=== PATIENT | male | born 1945 | race Caucasian/White ===

== ENCOUNTER 2017-09-21 10:51 | Day surgery (SDC) | payer MEDICARE, OTHER ==
[2017-09-21] VITALS (10 sets, daily range): BP systolic 90–147; BP diastolic 55–74
--- OUTSIDE RECORDS SUMMARY | 2017-09-21 10:55 | XMS REPORT ---
Author Author Kenzie Ayala [facility] Address [address] [place], [place] [id number] Care Team Providers Care Packaging Design Engineer Name Role Phone Kenzie Ayala PCP Kenzie Ayala PreferredProvider Allergies and Adverse Reactions Name Reaction Notes Nubain makes me nutty Plan of Treatment Planned Activity Comments Planned Date Planned Time Plan/Goal Adenovirus DNA assay by PCR 04/28/2016 12:00 AM Complete blood count (CBC) with differential count 05/27/2016 12:00 AM Comprehensive metabolic panel 05/27/2016 12:00 AM Lipid Blood Profile 05/27/2016 12:00 AM Hemoglobin A1c measurement 05/27/2016 12:00 AM MICROALBUMIN UR RANDOM 05/27/2016 12:00 AM Medications Active Name Start Date Estimated Completion Date SIG Comments tizanidine 4 mg oral capsule take 1 capsule (4 mg) by oral route at bedtime PRN Fish Oil oral nitroglycerin 0.4 mg sublingual tablet, sublingual pyridoxine (vitamin B6) 100 mg oral tablet take 1 tablet by oral route daily Centrum Silver 0.4-300-250 mg-mcg-mcg oral tablet take 1 tablet by oral route daily aspirin 81 mg oral tablet,delayed release (DR/EC) take 1 tablet (81 mg) by oral route once daily alpha lipoic acid 200 mg oral capsule take 1 capsule by oral route daily Acetaminophen PM 25-500 mg oral tablet take 2 tablets by oral route once daily at bedtime carvedilol 25 mg oral tablet 02/26/2016 08/19/2017 take 1 tablet (25 mg) by oral route 2 times per for 90 days enalapril maleate 20 mg oral tablet 03/29/2016 09/20/2017 take 1 tablet (20 mg) by oral route 2 for 90 days gabapentin 300 mg oral capsule 03/29/2016 03/24/2017 take 1 capsule (300 mg ) by oral route 3 for 90 days metformin 1,000 mg oral tablet 03/29/2016 09/20/2017 take 1.5 tabs in the morning and 1 tablet in the evening for 90 days pioglitazone 45 mg oral tablet 03/29/2016 12/24/2016 take 1 tablet (45 mg) by oral route once daily for 90 days tamsulosin 0.4 mg oral capsule,extended release 24hr 03/29/2016 09/20/2017 take 1 capsule (0.4 mg) by oral route once daily 1/2 hour following the same for 90 days pravastatin 40 mg oral tablet 04/19/2016 10/11/2017 take 1 tablet by oral route once a day (at bedtime) for 90 days KCL 20 meq 04/26/2016 1 po daily x5 clopidogrel 75 mg oral tablet 04/28/2016 10/20/2017 take 1 tablet (75 mg) by oral route once daily for 90 days ProAir HFA 90 mcg/actuation inhalation HFA aerosol inhaler 04/28/20162016 inhale 1 puff (90 mcg) by inhalation route every 4 hours as needed for 30 days PROAIR HFA AER 05/26/2016 INHALE ONE PUFF BY MOUTH EVERY 4 HOURS NEEDED fentanyl 75 mcg/hr transdermal patch 72 hour 05/27/2016 06/26/2016 Change every 36 hrs for 30 days hydrocodone-acetaminophen 7.5-325 mg oral tablet 05/27/2016 06/26/2016 take 1 tablet by oral route every 6 hours as needed for pain for 30 days Name Start Date Expiration Date SIG Comments Lasix 40 mg oral tablet 04/26/2016 05/01/2016 take 1 tablet (40 mg) by oral route once daily for 5 days doxycycline hyclate 100 mg oral tablet,delayed release (DR/EC) 04/28/201605/05 take 1 tablet (100 mg) by oral route 2 times per day for 7 days Discontinued Name Start Date Discontinued Date SIG Comments Lyrica 75 mg oral capsule 02/26/2016 take 1 capsule (75 mg) by oral route 2 times per day Levaquin 500 mg oral tablet 04/22/2016 04/28/2016 take 1 tablet (500 mg) by oral route once daily for 7 days Problem List Not available. Vital Signs Date Time BP-Sys(mm[Hg] BP-Katie(mm[Hg]) HR(bpm) RR(rpm) Temp WT HT HC BMI BSA BMI Percentile O2 Sat(%) 05/27/2016 1:41:00 PM 140 mmHg 60 mmHg 70 bpm 18 rpm 99.5 F 235.125 lbs 68 in 35.75 kg/m2 2.26 m2 93 % 04/28/2016 1:34:00 PM 144 mmHg 78 mmHg 74 bpm 18 rpm 99.6 F 227.5 lbs 68 in 34.5909 kg/m 2.2251 m 91 % 04/26/2016 10:54:00 AM 132 mmHg 72 mmHg 78 bpm 18 rpm 97 F 230.8 lbs 68 in 35.09 kg/m2 2.24 m2 98 % 04/22/2016 1:15:00 PM 140 mmHg 74 mmHg 74 bpm 18 rpm 98.7 F 231.125 lbs 68 in 35.1421 kg/m 2.2427 m 90 % 03/29/2016 2:15:00 PM 140 mmHg 76 mmHg 74 bpm 16 rpm 99 F 237.125 lbs 68 in 36.05 kg/m2 2.27 m2 94 % 02/26/2016 3:37:00 PM 164 mmHg 80 mmHg 70 bpm 16 rpm 100.2 F 233.125 lbs 69 in 34.4262 kg/m 2.2689 m 94 % Social History Name Description Comments Tobacco Former smoker quit 2000 Caffeine Current every day History of Procedures Date Ordered Description Order Status 04/22/2016 12:00 AM METABOLIC PANEL TOTAL CA Returned 04/22/2016 12:00 AM COMPLETE CBC W/AUTO DIFF WBC Returned 04/22/2016 12:00 AM CHEST X-RAY 2VW FRONTAL&LATL Returned 04/22/2016 12:00 AM ASSAY OF NATRIURETIC PEPTIDE Returned 04/28/2016 12:00 AM METABOLIC PANEL TOTAL CA Returned 04/28/2016 12:00 AM COMPLETE CBC W/AUTO DIFF WBC Returned 04/28/2016 12:00 AM CHEST X-RAY 2VW FRONTAL&LATL Returned 04/28/2016 12:00 AM ASSAY OF NATRIURETIC PEPTIDE Returned 04/28/2016 12:00 AM C-REACTIVE PROTEIN Returned 04/28/2016 12:00 AM AGENT NOS ASSAY W/OPTIC Returned 04/28/2016 12:00 AM LEGIONELLA ANTIBODY Returned Results Summary Data and Description Results 04/22/2016 1:38 PM WBC 12.5 RBC 5.58 HGB 14.10 g/dLHCT 43.50 %MCV 78.0 fLMCH 25.30 pgMCHC 32.40 g/dLRDW SD 41 RDW CV 14.60 %MPV 10.30 fLPLT 285 NRBC# 0.00 NRBC% 0.0 %NEUT 70.80 %%LYMP 19.50 %%MONO 6.80 %%EOS 1.80 %%BASO 0.60 %#NEUT 8.87 #LYMP 2.44 #MONO 0.85 #EOS 0.22 #BASO 0.08 MANUAL DIFF NOT IND GLUCOSE 141.0 mg/dLSODIUM 141.0 mmol/LPOTASSIUM 3.90 mmol/LCHLORIDE 99.0 mmol/LCO2 30.0 mmol/LBUN 8.0 mg/dLCREATININE 0.70 mg/dLCALCIUM 10.10 mg/dLAGE 70 GFR NonAA 111 GFR AA 135 eGFR >60 mL/min/1.73meGFR AA* >60 BNP 168.0 pg/mL 04/28/2016 2:40 PM WBC 14.8 RBC 5.64 HGB 14.40 g/dLHCT 44.50 %MCV 79.0 fLMCH 25.50 pgMCHC 32.40 g/dLRDW SD 42 RDW CV 15.0 %MPV 10.70 fLPLT 335 NRBC# 0.00 NRBC% 0.0 %NEUT 64.20 %%LYMP 25.70 %%MONO 5.90 %%EOS 2.70 %%BASO 0.60 %#NEUT 9.47 #LYMP 3.80 #MONO 0.87 #EOS 0.40 #BASO 0.09 MANUAL DIFF NOT IND C REACTIVE PROTEIN 18.0 mg/LBNP 37.0 pg/mLGLUCOSE 128.0 mg/dLSODIUM 138.0 mmol/LPOTASSIUM 4.40 mmol/LCHLORIDE 94.0 mmol/LCO2 31.0 mmol/LBUN 18.0 mg/dLCREATININE 0.80 mg/ dLCALCIUM 10.40 mg/dLAGE 70 GFR NonAA 95 GFR AA 115 eGFR >60 mL/min/1.73meGFR AA* >60 Streptococcus pneumoniaeAg Negative Legionella pneumophilaAbs. <0.91 04/28/2016 3:41 PM Adenovirus Not Detected Coronavirus 229E Not Detected Coronavirus HKU1 Not Detected Coronavirus NL63 Not Detected Coronavirus OC43 Not Detected Human Metapneumoviru Not Detected Human Rhinov/Enterov Not Detected Influenza A Not Detected Influenza B Not Detected Parainfluenza Virus1 Not Detected Parainfluenza Virus2 Not Detected Parainfluenza Virus3 Not Detected Parainfluenza Virus4 Not Detected Resp Syncytial Virus Not Detected Bordetella pertussis Not Detected Chlamydophila pneumo Not Detected Mycoplasma pneumonia Not Detected History Of Immunizations Not available. History of Past Illness Name Date of Onset Comments CAD Mar 29 2016 2:19PM Diabetes Mellitus, Type II Mar 29 2016 2:19PM Heart Failure, Systolic Mar 29 2016 2:19PM Lymphedema Mar 29 2016 2:19PM Obesity Mar 29 2016 2:19PM Osteoarthritis Mar 29 2016 2:19PM Lumbago with sciatica, right side Mar 29 2016 2:19PM Lumbago with sciatica, left side Mar 29 2016 2:19PM Other chronic pain Mar 29 2016 2:19PM Shortness Of Breath Apr 22 2016 1:17PM Cough Apr 22 2016 1:17PM Pneumonia of both lower lobes due to infectious organism Apr 26 2016 10:57AM Atelectasis, bilateral Apr 26 2016 10:57AM Heart Failure, Diastolic Apr 28 2016 1:37PM CAD Feb 26 2016 3:40PM Hyperlipidemia, Mixed Feb 26 2016 3:40PM Hypertension Feb 26 2016 3:40PM Single kidney Feb 26 2016 3:40PM Traumatic arthritis Feb 26 2016 3:40PM Radicular pain of left lower extremity Feb 26 2016 3:40PM FUO (fever of unknown origin) Feb 26 2016 3:40PM Cough Apr 28 2016 1:37PM Diabetes Mellitus, Type II, Uncontrolled May 27 2016 1:44PM Heart Failure, Diastolic May 27 2016 1:44PM Hypertension May 27 2016 1:44PM Osteoarthritis May 27 2016 1:44PM Chronic pain syndrome May 27 2016 1:44PM Payers Insurance Name Company Name Plan Name Plan Number Policy Number Policy Group Number Start Date [employer] [facility] [facility] [id number] N/A Medicare Part A Medicare - Lab/Xray [id number] N/A Medicare RHC Medicare [facility] [id number] N/A History of Encounters Visit Date Visit Type Provider 05/27/2016 Office visit Kenzie Ayala MD 04/28/2016 Office visit Kenzie Ayala MD 04/26/2016 Office visit Yvette Hansen APRN 04/22/2016 Office visit Yvette Hansen APRN 03/29/2016 Office visit Kenzie Ayala MD 02/26/2016 Office visit Kenzie Ayala MD
--- OUTSIDE RECORDS SUMMARY | 2017-09-21 10:55 | XMS REPORT ---
Author Author Kenzie Ayala [facility] Address [address] [place], [place] [id number] Care Team Providers Care Maintenance Of Way Foreman Name Role Phone Kenzie Ayala PCP Kenzie Ayala PreferredProvider Allergies and Adverse Reactions Name Reaction Notes Nubain makes me nutty Plan of Treatment Planned Activity Comments Planned Date Planned Time Plan/Goal Complete blood count (CBC) with differential count 05/27/2016 12:00 AM Comprehensive metabolic panel 05/27/2016 12:00 AM Lipid Blood Profile 05/27/2016 12:00 AM Hemoglobin A1c measurement 05/27/2016 12:00 AM MICROALBUMIN UR RANDOM 05/27/2016 12:00 AM Adenovirus DNA assay by PCR 04/28/2016 12:00 AM Basic metabolic panel 08/17/2016 12:00 AM BNP 08/17/2016 12:00 AM Medications Active Name Start Date Estimated Completion Date SIG Comments tizanidine 4 mg oral capsule take 1 capsule (4 mg) by oral route at bedtime PRN Fish Oil oral pyridoxine (vitamin B6) 100 mg oral tablet [...] by oral route once daily at bedtime enalapril maleate 20 mg oral tablet 03/29/2016 09/20/2017 take 1 tablet (20 mg) by oral route 2 for 90 days gabapentin 300 mg oral capsule 03/29/2016 03/24/2017 take 1 capsule (300 mg ) by oral route 3 for 90 days metformin 1,000 mg oral tablet 03/29/2016 09/20/2017 take 1.5 tabs in the morning and 1 tablet in the evening for 90 days tamsulosin 0.4 mg oral [...] oral route once daily for 90 days PROAIR HFA AER 05/26/2016 INHALE ONE PUFF BY MOUTH EVERY 4 HOURS NEEDED nitroglycerin 0.4 mg sublingual tablet, sublingual 09/21/2016 place 1 tablet (0.4 mg) by buccal route at the first sign of an attack; no more than 3 tabs are recommended within a 15 minute period. Pataday 0.2 % ophthalmic (eye) drops 01/19/2017 instill 1 drop into affected eye(s) by ophthalmic route once daily for 30 days fentanyl 75 mcg/hr transdermal patch 72 hour 02/23/2017 03/25/2017 Change every 36 hrs for 30 days. hydrocodone-acetaminophen 7.5-325 mg oral tablet 02/23/2017 03/25/2017 take 1 tablet by oral route every 6 hours as needed for pain for 30 days. Name Start Date Expiration Date SIG Comments pioglitazone 45 mg oral tablet 03/29/2016 12/24/2016 take 1 tablet (45 mg) by oral route once daily for 90 days doxycycline hyclate 100 mg oral tablet,delayed release (DR/EC) 04/28/201605/05 take 1 tablet (100 mg) by oral route 2 times per day for 7 days Ventolin HFA 90 mcg/actuation inhalation HFA aerosol inhaler 05/27/20162016 inhale 1 puff (90 mcg) by inhalation route every 4 hours as needed for 30 days Lasix 20 mg oral tablet 08/17/2016 02/13/2017 take 1 tablet (20 mg) by oral route once daily for 30 days carvedilol 25 mg oral tablet 02/28/2017 02/28/2017 TAKE ONE TABLET BY MOUTH TWICE DAILY Discontinued Name Start Date Discontinued Date SIG [...] HC BMI BSA BMI Percentile O2 Sat(%) 01/19/2017 4:24:00 PM 128 mmHg 62 mmHg 72 bpm 18 rpm 99.7 F 242 lbs 68 in 36.80 kg/m2 2.29 m2 93 % 08/17/2016 1:53:00 PM 172 mmHg 94 mmHg 72 bpm 18 rpm 99.4 F 250.125 lbs 68 in 38.031 kg/m 2.3331 m 92 % 05/27/2016 1:41:00 PM 140 mmHg 60 mmHg [...] 04/22/2016 12:00 AM METABOLIC PANEL TOTAL CA Reviewed 04/22/2016 12:00 AM COMPLETE CBC W/AUTO DIFF WBC Reviewed 04/22/2016 12:00 AM CHEST X-RAY 2VW FRONTAL&LATL Reviewed 04/22/2016 12:00 AM ASSAY OF NATRIURETIC PEPTIDE Reviewed 04/28/2016 12:00 AM METABOLIC PANEL TOTAL CA Returned 04/28/2016 12:00 AM COMPLETE CBC W/AUTO DIFF WBC Returned 04/28/2016 12:00 AM CHEST X-RAY 2VW FRONTAL&LATL Returned 04/28/2016 12:00 AM ASSAY OF NATRIURETIC PEPTIDE Returned 04/28/2016 12:00 AM C-REACTIVE PROTEIN Returned 04/28/2016 12:00 AM AGENT NOS ASSAY W/OPTIC Returned 04/28/2016 12:00 AM LEGIONELLA ANTIBODY Returned 01/19/2017 12:00 AM THERAPEUTIC PROPHYLACTIC/DX INJECTION SUBQ/IM Reviewed 01/19/2017 12:00 AM Depo Medrol 40mg Injection, [facility] Medicare Reviewed 01/19/2017 12:00 AM Decadron 4mg Injection, [facility] Medicare Reviewed 01/19/2017 12:00 AM Injection, dexamethasone sodium phosphate, 1mg Reviewed 01/19/2017 12:00 AM Injection, methylprednisolone acetate, 80 mg Reviewed Results Summary Date and Description Results 04/22/2016 1:38 PM WBC [...] >60 mL/min/1.73meGFR AA* >60 BNP 168.0 pg/mL History Of Immunizations Not available. History of [...] Chronic pain syndrome May 27 2016 1:44PM Cough Aug 17 2016 1:57PM Fatigue Aug 17 2016 1:57PM Weight Gain, Abnormal Aug 17 2016 1:57PM Sinusitis Jan 19 2017 4:53PM Allergic Rhinitis Jan 19 2017 4:28PM Allergic conjunctivitis Jan 19 2017 4:28PM Lumbago with sciatica, left side Jan 19 2017 4:28PM Lumbago with sciatica, right side Jan 19 2017 4:28PM Other chronic pain Jan 19 2017 4:28PM Payers Insurance Name Company Name Plan Name Plan Number Policy Number Policy Group Number Start Date [facility] [employer] [facility] [id number] Wednesday, 2016 Medicare Part A Medicare - Lab/Xray [id number] N/A Medicare RHC Medicare C [id number] N/A History of Encounters Visit Date Visit Type Provider 01/19/2017 Office visit Kenzie Ayala MD 08/17/2016 Office visit Kenzie Ayala MD 05/27/2016 Office visit Kenzie Ayala MD 04/28/2016 Office visit Kenzie Ayala MD 04/26/2016 Office visit Yvette Hansen APRN 04/22/2016 Office visit Yvette Hansen APRN 03/29/2016 Office visit Kenzie Ayala MD 02/26/2016 Office visit Kenzie Ayala MD
--- OUTSIDE RECORDS SUMMARY | 2017-09-21 10:56 | XMS REPORT ---
Author Author Fabian Lehman [facility] Address [address] [place], [place] [id number] Care Team Providers Care Soda Worker Name Role Phone Fabian Lehman PCP Kenzie Ayala PreferredProvider Allergies and Adverse [...] 08/17/2016 12:00 AM BNP 08/17/2016 12:00 AM Respiratory Therapy Treatment 05/22/2017 12:00 AM Administration of ipratropium bromide with albuterol sulfate by nebulizer 12:00 AM Breathing Treatment 05/22/2017 12:00 AM Medications Active Name Start Date Estimated Completion Date SIG Comments Fish Oil oral Centrum Silver 0.4-300-250 mg-mcg-mcg oral tablet take 1 tablet by oral route daily aspirin 81 mg oral tablet,delayed release (DR/EC) take 1 tablet (81 mg) by oral route once daily alpha lipoic acid 200 mg oral capsule take 1 capsule by oral route daily Acetaminophen PM 25-500 mg oral tablet take 2 tablets by oral route once daily at bedtime KCL 20 meq 04/26/2016 1 po daily x5 nitroglycerin 0.4 mg sublingual tablet, sublingual 09/21/2016 place 1 tablet (0.4 mg) by buccal route at the first sign of an attack; no more than 3 tabs are recommended within a 15 minute period. Pataday 0.2 % ophthalmic (eye) drops 01/19/2017 instill 1 drop into affected eye(s) by ophthalmic route once daily for 30 days albuterol sulfate 2.5 mg /3 mL (0.083 %) inhalation solution for nebulization 05/22/2017 inhale 3 milliliters (2.5 mg) by nebulization route 4 times per day as needed gabapentin 300 mg oral capsule 06/17/2017 TAKE ONE CAPSULE BY MOUTH DAILY isosorbide mononitrate 30 mg oral tablet extended release 24 hr take 1 tablet (30 mg) by oral route once daily in the morning Tessalon Perles 100 mg oral capsule 06/17/2017 take 1 capsule (100 mg) by oral route 3 times per day as needed for cough ipratropium-albuterol 0.5 mg-3 mg(2.5 mg base)/3 mL inhalation solution for nebulization 06/18/2017 use in nebulizer as directed 2 times a day nebulizer with acc 06/18/2017 Use as directed. oxycodone-acetaminophen 7.5-325 mg oral tablet 08/23/2017 09/22/2017 take 1 tablet by oral route every 6 hours as needed not to exceed 8 tablets per 24hrs for 30 days fentanyl 75 mcg/hr transdermal patch 72 hour 08/23/2017 09/22/2017 apply 1 patch (75 mcg/hour) by transdermal route every 36 hours for 30 days Name Start Date Expiration Date SIG Comments tizanidine 4 mg oral capsule take 1 capsule (4 mg) by oral route at bedtime PRN pyridoxine (vitamin B6) 100 mg oral tablet take 1 tablet by oral route daily tamsulosin 0.4 mg oral capsule,extended release 24hr 03/29/2016 09/20/2017 take 1 capsule (0.4 mg) by oral route once daily 1/2 hour following the same for 90 days doxycycline hyclate 100 mg [...] TAKE ONE TABLET BY MOUTH TWICE DAILY enalapril maleate 20 mg oral tablet 04/20/2017 04/20/2017 TAKE ONE TABLET BY MOUTH TWICE DAILY pioglitazone 45 mg oral tablet 05/16/2017 05/16/2017 TAKE ONE TABLET BY MOUTH ONCE DAILY clopidogrel 75 mg oral tablet 05/16/2017 05/16/2017 TAKE ONE TABLET BY MOUTH ONCE DAILY pravastatin 40 mg oral tablet 05/16/2017 05/16/2017 TAKE ONE TABLET BY MOUTH ONCE DAILY AT BEDTIME FOR 90 DAYS Tamiflu 75 mg oral capsule 05/22/2017 take 1 capsule (75 mg) by oral route 2 times per day for 5 days Tessalon Perles 100 mg oral capsule 05/22/2017 take 1 capsule (100 mg) by oral route 3 times per day as needed for cough metformin 1,000 mg oral tablet 05/30/2017 05/30/2017 TAKE ONE & ONE-HALF TABLETS BY MOUTH IN THE MORNING AND ONE TABLET IN THE EVENING FOR 90 DAYS. levofloxacin 500 mg oral tablet 06/17/2017 take 1 tablet (500 mg) by oral route once daily for 10 days hydrocodone-acetaminophen 7.5-325 mg oral tablet 06/22/2017 07/22/2017 take 1 tablet by oral route every 6 hours as needed for pain for 30 days. Discontinued Name Start Date Discontinued Date SIG Comments Lyrica 75 mg oral capsule 02/26/2016 take 1 capsule (75 mg) by oral route 2 times per day Levaquin 500 mg oral tablet 04/22/2016 04/28/2016 take 1 tablet (500 mg) by oral route once daily for 7 days PROAIR HFA AER 05/26/2016 05/22/2017 INHALE ONE PUFF BY MOUTH EVERY 4 HOURS NEEDED Problem List Not available. Vital Signs Date Time BP-Sys(mm[Hg] BP-Katie(mm[Hg]) HR(bpm) RR(rpm) Temp WT HT HC BMI BSA BMI Percentile O2 Sat(%) 08/23/2017 10:24:00 AM 140 mmHg 64 mmHg 70 bpm 18 rpm 98.1 F 252.25 lbs 67 in 39.5075 kg/m 2.3257 m 92 % 06/22/2017 3:53:00 PM 132 mmHg 70 mmHg 70 bpm 18 rpm 97.5 F 239.25 lbs 67 in 37.47 kg/m2 2.26 m2 92 % 06/17/2017 1:02:00 PM 154 mmHg 84 mmHg 72 bpm 22 rpm 100.1 F 247 lbs 67 in 38.6853 kg/m 2.3014 m 91 % 05/22/2017 1:45:00 PM 130 mmHg 70 mmHg 101.3 F 242.125 lbs 91 % 01/19/2017 4:24:00 PM 128 mmHg 62 mmHg [...] 01/19/2017 12:00 AM Depo Medrol 40mg Injection, [facility] Medicare Reviewed 01/19/2017 12:00 AM Decadron 4mg Injection, [facility] Medicare Reviewed 01/19/2017 12:00 AM Injection, dexamethasone sodium phosphate, 1mg Reviewed 01/19/2017 12:00 AM Injection, methylprednisolone acetate, 80 mg Reviewed 06/17/2017 12:00 AM CHEST X-RAY 2VW FRONTAL&LATL Reviewed 06/17/2017 12:00 AM COMPLETE CBC W/AUTO DIFF WBC Reviewed 06/17/2017 12:00 AM COMPREHEN METABOLIC PANEL Reviewed 06/17/2017 12:00 AM ASSAY OF NATRIURETIC PEPTIDE Reviewed 06/17/2017 12:00 AM GLYCOSYLATED HEMOGLOBIN TEST Reviewed 06/17/2017 12:00 AM Decadron 8mg Injection, [facility] Medicare Reviewed 06/17/2017 12:00 AM Depo-Medrol 80mg Injection, [facility] Medicare Reviewed 06/17/2017 12:00 AM Rocephin 1 gram Injection, [facility] Medicare Reviewed 06/17/2017 12:00 AM THER/PROPH/DIAG INJ SC/IM Reviewed Results Summary Date and Description Results [...] >60 mL/min/1.73meGFR AA* >60 BNP 168.0 pg/mL 06/17/2017 4:20 PM GLUCOSE 122.0 mg/dLSODIUM 140.0 mmol/LPOTASSIUM 4.0 mmol/ LCHLORIDE 101.0 mmol/LCO2 30.0 mmol/LBUN 12.0 mg/dLCREATININE 0.70 mg/dLSGOT/ AST 14.0 IU/LSGPT/ALT 11.0 IU/LALK PHOS 49.0 IU/LTOTAL PROTEIN 7.70 g/dLALBUMIN 3.80 g/dLTOTAL BILI 1.0 mg/dLCALCIUM 9.50 mg/dLAGE 71 GFR NonAA 111 GFR AA 135 eGFR >60 mL/min/1.73meGFR AA* >60 WBC 14.8 RBC 4.83 HGB 12.40 g/dLHCT 40.0 % MCV 83.0 fLMCH 25.70 pgMCHC 31.0 g/dLRDW SD 48 RDW CV 15.90 %MPV 11.20 fLPLT 267 NRBC# 0.00 NRBC% 0.0 %NEUT 75.40 %%LYMP 16.80 %%MONO 4.0 %%EOS 2.40 %%BASO 0.70 %#NEUT 11.13 #LYMP 2.48 #MONO 0.59 #EOS 0.35 #BASO 0.11 MANUAL DIFF NOT IND HGB A1C 6.80 %Est Avg Glucose 148.5 mg/dLBNP 289.0 pg/mL History Of Immunizations Not available. History of Past Illness Name Date of Onset Comments Cough Shortness of Breath Hypoxemia Influenza Allergic rhinitis Chronic back pain Fatigue Chronic heart failure, unspecified heart failure type Diabetes Pneumonia CAD Lymphedema Osteoarthritis Peripheral neuropathy Hyperlipidemia CAD Mar 29 2016 2:19PM Diabetes Mellitus, [...] Other chronic pain Jan 19 2017 4:28PM Shortness of breath May 22 2017 2:02PM Influenza May 22 2017 1:50PM Cough May 22 2017 1:50PM Hypoxemia May 22 2017 1:50PM Shortness of breath May 22 2017 1:50PM Fever May 22 2017 1:50PM Cough Jun 17 2017 1:24PM Fever Jun 17 2017 1:24PM Adventitious breath sounds Jun 17 2017 1:24PM Diabetes mellitus, type 2 Jun 17 2017 1:24PM Hyperlipidemia Jun 17 2017 1:24PM CHF (congestive heart failure) Jun 17 2017 1:24PM CAD (coronary artery disease) Jun 17 2017 1:24PM Dorsalgia, unspecified Jun 22 2017 4:03PM Other chronic pain Jun 22 2017 4:03PM Payers Insurance Name Company Name Plan Name Plan Number Policy Number Policy Group Number Start Date [employer] [facility] [id number] Wednesday, 2016 Medicare Part A Medicare - Lab/Xray [id number] N/A Medicare RHC Medicare RHC [id number] N/A History of Encounters Visit Date Visit Type Provider 08/23/2017 Office visit Fabian Lehman NP 06/22/2017 Office visit Fabian Lehman NP 06/17/2017 Office visit Fabian Lehman NP 05/24/2017 [facility] Julien Lay MD 05/22/2017 Office visit Fabian Lehman NP 01/19/2017 Office visit Kenzie Ayala MD 08/17/2016 Office visit Kenzie Ayala MD 05/27/2016 Office visit Kenzie Ayala MD 04/28/2016 Office visit Kenzie Ayala MD 04/26/2016 Office visit Yvette Hansen APRN 04/22/2016 Office visit Yvette Hansen APRN 03/29/2016 Office visit Kenzie Ayala MD 02/26/2016 Office visit Kenzie Ayala MD
--- OUTSIDE RECORDS SUMMARY | 2017-09-21 10:56 | XMS REPORT ---
Author Author Fabian Lehman [facility] Address [address] [facility] [address] [place], [place] [id number] Care Team Providers Care Workforce Specialist Name Role Phone Fabian Lehman PCP Kenzie [...] oral route once daily in the morning levofloxacin 500 mg oral tablet 06/17/2017 take 1 tablet (500 mg) by oral route once daily for 10 days Tessalon Perles 100 mg oral capsule 06/17/2017 take 1 capsule (100 mg) by oral route 3 times per day as needed for cough ipratropium-albuterol 0.5 mg-3 mg(2.5 mg base)/3 mL inhalation solution for nebulization 06/18/2017 use in nebulizer as directed 2 times a day nebulizer with acc 06/18/2017 Use as directed. Name Start Date Expiration Date SIG Comments [...] TABLET IN THE EVENING FOR 90 DAYS. fentanyl 75 mcg/hr transdermal patch 72 hour 06/22/2017 07/22/2017 apply 1 patch (75 mcg/hour) by transdermal route every 36 hours for 30 days hydrocodone-acetaminophen 7.5-325 mg oral tablet 06/22/2017 [...] HC BMI BSA BMI Percentile O2 Sat(%) 06/22/2017 3:53:00 PM 132 mmHg 70 mmHg 70 bpm 18 rpm 97.5 F 239.25 lbs 67 in 37.4715 kg/m 2.265 m 92 % 06/17/2017 1:02:00 PM 154 mmHg 84 mmHg 72 bpm 22 rpm 100.1 F 247 lbs 67 in 38.69 kg/m2 2.30 m2 91 % 05/22/2017 1:45:00 PM 130 mmHg [...] Number Start Date [employer] [facility] [id number] Wednesday, 2016 Medicare Part A Medicare - Lab/Xray [id number] N/A Medicare RHC Medicare RHC [id number] N/A History of Encounters Visit Date Visit Type Provider 06/22/2017 Office visit Fabian Lehman NP 06/17/2017 Office visit Fabian Lehman NP 05/24/2017 [facility] Curtis Lay MD 05/22/2017 Office visit Fabian Lehman NP 01/19/2017 Office visit Kenzie Ayala MD 08/17/2016 Office visit Kenzie Ayala MD 05/27/2016 Office visit Kenzie Ayala MD 04/28/2016 Office visit Kenzie Ayala MD 04/26/2016 Office visit Yvette Hansen APRN 04/22/2016 Office visit Yvette Hansen APRN 03/29/2016 Office visit Kenzie Ayala MD 02/26/2016 Office visit Kenzie Ayala MD
--- OUTSIDE RECORDS SUMMARY | 2017-09-21 10:57 | XMS REPORT ---
Author Author Fabian Lehman [facility] Address [address] [facility] [address] [place], [place] [id number] Care Team Providers Care Cat Swamper Name Role Phone Fabian Lehman PCP Kenzie [...] 12:00 AM Breathing Treatment 05/22/2017 12:00 AM MRI LUMBAR SPINE W/O CONTRAST 09/09/2017 12:00 AM Medications Active Name Start Date [...] nebulizer with acc 06/18/2017 Use as directed. fentanyl 75 mcg/hr transdermal patch 72 hour 08/23/2017 09/22/2017 apply 1 patch (75 mcg/hour) by transdermal route every 36 hours for 30 days oxycodone-acetaminophen 7.5-325 mg oral tablet 09/09/2017 take 1 tablet by oral route every 6 hours as needed not to exceed 8 tablets per 24hrs Name Start Date Expiration Date SIG Comments [...] Other chronic pain Jun 22 2017 4:03PM Dorsalgia, unspecified Sep 01 2017 3:24PM Other chronic pain Sep 01 2017 3:24PM Lumbago with sciatica, left side Aug 23 2017 10:29AM Lumbago with sciatica, right side Aug 23 2017 10:29AM Other chronic pain Aug 23 2017 10:29AM Chronic pain Aug 23 2017 10:29AM Payers Insurance Name Company Name Plan Name Plan Number Policy Number Policy Group Number Start Date [employer] [facility] [facility] [id number] Wednesday, 2016 Medicare Part A Medicare - Lab/Xray [id number] N/A Medicare RHC Medicare [facility] [id number] N/A History of Encounters Visit Date Visit Type Provider 08/23/2017 Office visit Fabian Lehman NP 06/22/2017 Office visit Fabian Lehman NP 06/17/2017 Office visit Fabian Lehman NP 05/24/2017 [facility] Julien Lay MD 05/22/2017 Office visit [...]
--- OUTSIDE RECORDS SUMMARY | 2017-09-21 10:57 | XMS REPORT ---
Author Author Fabian Lehman [facility] Address [address] [facility] [address] [place], [place] [phone] Care Team Providers Care Elementary Science Teacher Name Role Phone Fabian Lehman PCP Kenzie [...] 12:00 AM Breathing Treatment 05/22/2017 12:00 AM Computed tomography myelogram of lumbosacral region 09/09/2017 12:00 AM Medications Active Name Start [...] are recommended within a 15 minute period. Patadaemily 0.2 % ophthalmic (eye) drops 01/19/2017 instill [...] Number Start Date [employer] [facility] [id number] Wednesday, 2016 Medicare Part A Medicare - Lab/Xray [id number] N/A Medicare RHC Medicare [facility] [id number] N/A History of Encounters Visit Date Visit Type Provider 08/23/2017 Office visit 08/23/2017 Office visit Fabian Lehman NP 06/22/2017 Office visit Fabian Lehman NP 06/17/2017 Office visit Fabian Lehman NP 05/24/2017 [facility] Julien Lay MD 05/22/2017 Office visit Fabian [...]
--- OUTSIDE RECORDS SUMMARY | 2017-09-21 10:58 | XMS REPORT ---
Author Author Kenzie Ayala Organization [facility] Address [address] [facility] [address] [place], [place] [phone] Care Team Providers Care Watchmaker Apprentice Name Role Phone Kenzie Ayala PCP Kenzie Ayala PreferredProvider Allergies and Adverse Reactions Name Reaction Notes Nubain makes me nutty Plan of Treatment Planned Activity Comments Planned Date Planned Time Plan/Goal Adenovirus DNA assay by PCR 04/28/2016 12:00 AM Medications Active Name Start Date [...] oral route once daily for 90 days fentanyl 75 mcg/hr transdermal patch 72 hour 04/28/2016 05/28/2016 Change every 36 hrs for 30 days hydrocodone-acetaminophen 7.5-325 mg oral tablet 04/28/2016 05/28/2016 take 1 tablet by oral route every 6 hours as needed for pain for 30 days ProAir HFA 90 mcg/actuation inhalation HFA aerosol inhaler 04/28/20162016 inhale 1 puff (90 mcg) by inhalation route every 4 hours as needed for 30 days Name Start Date Expiration [...] HC BMI BSA BMI Percentile O2 Sat(%) 04/28/2016 1:34:00 PM 144 mmHg 78 mmHg 74 bpm 18 rpm 99.6 F 227.5 lbs 68 in 34.59 kg/m2 2.23 m2 91 % 04/26/2016 10:54:00 AM 132 mmHg 72 mmHg 78 bpm 18 rpm 97 F 230.8 lbs 68 in 35.0927 kg/m 2.2412 m 98 % 04/22/2016 1:15:00 PM 140 mmHg 74 mmHg 74 bpm 18 rpm 98.7 F 231.125 lbs 68 in 35.14 kg/m2 2.24 m2 90 % 03/29/2016 2:15:00 PM 140 mmHg 76 mmHg 74 bpm 16 rpm 99 F 237.125 lbs 68 in 36.0544 kg/m 2.2717 m 94 % 02/26/2016 3:37:00 PM 164 mmHg 80 mmHg 70 bpm 16 rpm 100.2 F 233.125 lbs 69 in 34.43 kg/m2 2.27 m2 94 % Social History Name Description Comments Tobacco Former smoker quit 1999 Caffeine Current every day History of Procedures [...] of unknown origin) Feb 26 2016 3:40PM Payers Insurance Name Company Name Plan Name Plan Number Policy Number Policy Group Number Start Date [employer] [facility] Claims [facility] [id number] N/A Medicare Part A Medicare - Lab/Xray [id number] N/A Medicare RHC Medicare RHC [id number] N/A History of Encounters Visit Date Visit Type Provider 04/28/2016 Office visit Kenzie Ayala MD 04/26/2016 Office visit Yvette Hansen APRN 04/22/2016 Office visit Yvette Hansen APRN 03/29/2016 Office visit Kenzie Ayala MD 02/26/2016 Office visit Kenzie Ayala MD
--- OUTSIDE RECORDS SUMMARY | 2017-09-21 10:58 | XMS REPORT ---
Author Author Kenzie Ayala Organization [facility] Address [address] [facility] [address] [place], [place] [id number] Care Team Providers Care Industrial Illuminating Engineer Name Role Phone Kenzie Ayala PCP Kenzie Ayala PreferredProvider Allergies and Adverse Reactions Name Reaction Notes Nubain makes me nutty Plan of Treatment Planned Activity Comments Planned Date Planned Time Plan/Goal Adenovirus DNA assay by PCR 04/28/2016 12:00 AM LEGIONELLA ANTIBODY 04/28/2016 12:00 AM Medications Active Name Start [...] a day (at bedtime) for 90 days Lasix 40 mg oral tablet 04/26/2016 05/01/2016 take 1 tablet (40 mg) by oral route once daily for 5 days KCL 20 meq 04/26/2016 1 po daily x5 doxycycline hyclate 100 mg oral tablet,delayed release (DR/EC) 04/28/201605/05 take 1 tablet (100 mg) by oral route 2 times per day for 7 days clopidogrel 75 mg oral tablet 04/28/2016 10/20/2017 [...] 4 hours as needed for 30 days Discontinued Name Start Date Discontinued Date [...] 12:00 AM AGENT NOS ASSAY W/OPTIC Returned Results Summary Data and Description Results [...] >60 BNP 168.0 pg/mL 04/28/2016 2:40 PM C REACTIVE PROTEIN 18.0 mg/LBNP 37.0 pg/mLStreptococcus pneumoniaeAg Negative History Of Immunizations Not available. History of [...] Heart Failure, Diastolic Apr 28 2016 1:37PM Payers Insurance Name Company Name Plan Name Plan Number Policy Number Policy Group Number Start Date [employer] [facility] Claims [facility] [id number] N/A Medicare Part A Medicare - Lab/Xray [id number] N/A Medicare RHC Medicare RHC [id number] N/A History of Encounters Visit Date Visit Type Provider 04/28/2016 Office visit Kenzie Ayala MD 04/26/2016 Office visit Yvette Hansen APRN 04/22/2016 Office visit Yvette Hansen APRN 03/29/2016 Office visit Kenzie Ayala MD 02/26/2016 Office visit Kenzie Ayala MD
--- OUTSIDE RECORDS SUMMARY | 2017-09-21 10:59 | XMS REPORT ---
Author Author Kenzie Ayala Organization [facility] Address [address] [facility] [address] [place], [place] [phone] Care Team Providers Care Roster Clerk Name Role Phone Kenzie Ayala PCP Kenzie [...] PUFF BY MOUTH EVERY 4 HOURS NEEDED Ventolin HFA 90 mcg/actuation inhalation HFA aerosol inhaler 05/27/20162016 inhale 1 puff (90 mcg) by inhalation route every 4 hours as needed for 30 days Lasix 20 mg oral tablet 08/17/2016 02/13/2017 take 1 tablet (20 mg) by oral route once daily for 30 days fentanyl 75 mcg/hr transdermal patch 72 hour 2016 10/14/2016 Change every 36 hrs for 30 days. Refill on 09-16-16 hydrocodone-acetaminophen 7.5-325 mg oral tablet 2016 10/14/2016 take 1 tablet by oral route every 6 hours as needed for pain for 30 days. Refill on 09-16-16 nitroglycerin 0.4 mg sublingual tablet, sublingual 09/21/2016 place 1 tablet (0.4 mg) by buccal route at the first sign of an attack; no more than 3 tabs are recommended within a 15 minute period. Name Start Date Expiration Date SIG Comments doxycycline hyclate 100 mg oral tablet,delayed release [...] HC BMI BSA BMI Percentile O2 Sat(%) 08/17/2016 1:53:00 PM 172 mmHg 94 mmHg 72 bpm 18 rpm 99.4 F 250.125 lbs 68 in 38.03 kg/m2 2.33 m2 92 % 05/27/2016 1:41:00 PM 140 mmHg 60 mmHg 70 bpm 18 rpm 99.5 F 235.125 lbs 68 in 35.7503 kg/m 2.2621 m 93 % 04/28/2016 1:34:00 PM 144 mmHg [...] 12:00 AM LEGIONELLA ANTIBODY Returned Results Summary Date and Description Results 04/22/2016 [...] Weight Gain, Abnormal Aug 17 2016 1:57PM Payers Insurance Name Company Name Plan Name Plan Number Policy Number Policy Group Number Start Date [employer] [facility] Claims [facility] [id number] Wednesday, 2016 Medicare Part A Medicare - Lab/Xray [id number] N/A Medicare RHC Medicare RHC [id number] N/A History of Encounters Visit Date Visit Type Provider 08/17/2016 Office visit Kenzie Ayala MD 05/27/2016 Office visit Kenzie Ayala MD 04/28/2016 Office visit Kenzie Ayala MD 04/26/2016 Office visit Yvette Hansen APRN 04/22/2016 Office visit Yvette Hansen APRN 03/29/2016 Office visit Kenzie Ayala MD 02/26/2016 Office visit Kenzie Ayala MD
--- OUTSIDE RECORDS SUMMARY | 2017-09-21 10:59 | XMS REPORT ---
Author Author Fabian Lehman [facility] Address [address] [facility] [address] [place], [place] [phone] Care Team Providers Care Technical Applications Specialist Name Role Phone Fabian Lehman PCP [...] 12:00 AM MRI LUMBAR SPINE W/O CONTRAST 09/01/2017 12:00 AM Medications Active Name Start Date [...] Other chronic pain Sep 01 2017 3:24PM Payers Insurance Name Company Name Plan Name Plan Number Policy Number Policy Group Number Start Date [employer] Claims [facility] [id number] Wednesday, 2016 Medicare Part A Medicare - Lab/Xray [id number] N/A Medicare RHC Medicare RHC [id number] N/A History of Encounters Visit Date Visit Type Provider 08/23/2017 Office visit Fabian Lehman NP 06/22/2017 Office visit Fabian Lehman NP 06/17/2017 Office visit Fabian Lehman NP 05/24/2017 [facility] Curtis Lay MD 05/22/2017 Office visit Fabian [...]
--- OUTSIDE RECORDS SUMMARY | 2017-09-21 10:59 | XMS REPORT ---
Author Author Fabian Lehman [facility] Address [address] [facility] [address] [place], [place] [phone] Care Team Providers Care Safety Attendant Name Role Phone Fabian Lehman PCP Kenzie [...] Number Start Date [employer] Claims Center [id number] Wednesday, 2016 Medicare Part A Medicare - Lab/Xray [id number] N/A Medicare RHC Medicare [facility] [id number] N/A History of Encounters Visit Date Visit Type Provider 08/23/2017 Office visit Fabian Lehman NP 06/22/2017 Office visit Fabian Lehman NP 06/17/2017 Office visit Fabian Lehman NP 05/24/2017 [facility] Julien Lay MD 05/22/2017 Office visit [...]
--- OUTSIDE RECORDS SUMMARY | 2017-09-21 11:00 | XMS REPORT ---
Author Author Fabian Lehman [facility] Address [address] [facility] [address] [place], [place] [phone] Care Team Providers Care Chemical Plant Worker Name Role Phone Fabian Lehman PCP [...] (coronary artery disease) Jun 17 2017 1:24PM Payers Insurance Name Company Name Plan Name Plan Number Policy Number Policy Group Number Start Date [employer] Hum[employer] Claims [facility] [id number] Wednesday, 2016 Medicare Part A Medicare - Lab/Xray [id number] N/A Medicare RHC Medicare RHC [id number] N/A History of Encounters Visit Date Visit Type Provider 06/22/2017 Office visit Fabian Lehman NP 06/17/2017 Office visit Fabian Lehman NP 05/24/2017 [facility] Curtis Lay MD 05/22/2017 Office visit Fabian Lehman NP 01/19/2017 Office visit Kenzie Ayala MD 08/17/2016 Office visit Kenzie Ayala MD 05/27/2016 Office visit Kenzie Ayala MD 04/28/2016 Office visit Kenzei Ayala MD 04/26/2016 Office visit Yvette Hansen APRN 04/22/2016 Office visit Yvette Hansen APRN 03/29/2016 Office visit Kenzie Ayala MD 02/26/2016 Office visit Kenzie Ayala MD
--- OUTSIDE RECORDS SUMMARY | 2017-09-21 11:00 | XMS REPORT ---
Author Author Fabian Lehman Organization [facility] Address [address] [facility] [address] [place], [place] [phone] Care Team Providers Care Multimedia Coordinator Name Role Phone Fabian Lehman PCP Kenzie [...] 12:00 AM Breathing Treatment 05/22/2017 12:00 AM Chest PA and Lateral - Main 06/17/2017 12:00 AM CBC W/ AUTO DIFF (RFLX MAN DIFF IF IND). 06/17/2017 12:00 AM CMP 06/17/2017 12:00 AM BNP 06/17/2017 12:00 AM HGB A1C 06/17/2017 12:00 AM Medications Active Name Start Date [...] route 4 times per day as needed ipratropium-albuterol 0.5 mg-3 mg(2.5 mg base)/3 mL inhalation solution for nebulization 05/22/2017 use in nebulizer as directed 2 times a day fentanyl 75 mcg/hr transdermal patch 72 hour 05/25/2017 06/24/2017 apply 1 patch (75 mcg/hour) by transdermal route every 36 hours for 30 days hydrocodone-acetaminophen 7.5-325 mg oral tablet 05/25/2017 06/24/2017 take 1 tablet by oral route every 6 hours as needed for pain for 30 days. gabapentin 300 mg oral capsule 06/17/2017 TAKE [...] times per day as needed for cough Name Start Date Expiration Date SIG Comments [...] TABLET IN THE EVENING FOR 90 DAYS. Discontinued Name Start Date Discontinued Date SIG [...] HC BMI BSA BMI Percentile O2 Sat(%) 06/17/2017 1:02:00 PM 154 mmHg 84 mmHg [...] 01/19/2017 12:00 AM Depo Medrol 40mg Injection, [facility] Medicare Reviewed 01/19/2017 12:00 AM Decadron [...] Policy Number Policy Group Number Start Date [facility] Claims [facility] [id number] Wednesday, 2016 Medicare Part A Medicare - Lab/Xray [id number] N/A Medicare RHC Medicare RHC [id number] N/A History of Encounters Visit Date Visit Type Provider 06/17/2017 Office visit Fabian Lehman NP 05/24/2017 [facility] Curtis Lay MD 05/22/2017 Office visit Fabian Lehman NP 01/19/2017 Office visit Kenzie Ayala MD 08/17/2016 Office visit Kenzie Ayala MD 05/27/2016 Office visit Kenzie Ayala MD 04/28/2016 Office visit Kenzie Ayala MD 04/26/2016 Office visit Yvette Hansen BIBLICAL LANGUAGES PROFESSOR 04/22/2016 Office visit Yvette Hansen APRN 03/29/2016 Office visit Kenzie Ayala MD 02/26/2016 Office visit Kenzie Ayala MD
--- OUTSIDE RECORDS SUMMARY | 2017-09-21 11:01 | XMS REPORT ---
Author Author Yvette Hansen [facility] Address [address] [facility] [address] [place], [place] [phone] Care Team Providers Care Assigner Name Role Phone Yvette Hansen PCP Unavailable Kenzie Ayala PreferredProvider Allergies and Adverse Reactions Name Reaction Notes Nubain makes me nutty Plan of Treatment Not available. Medications Active Name Start Date Estimated Completion [...] route 2 times per for 90 days clopidogrel 75 mg oral tablet 02/26/2016 08/19/2017 take 1 tablet (75 mg) by oral route once daily for 90 days enalapril maleate 20 mg oral tablet 03/29/2016 09/20/2017 take 1 tablet (20 mg) by oral route 2 for 90 days fentanyl 75 mcg/hr transdermal patch 72 hour 03/29/2016 04/28/2016 Change every 36 hrs for 30 days gabapentin 300 mg oral capsule 03/29/2016 03/24/2017 take 1 capsule (300 mg ) by oral route 3 for 90 days hydrocodone-acetaminophen 7.5-325 mg oral tablet 03/29/2016 04/28/2016 take 1 tablet by oral route every 6 hours as needed for pain for 30 days metformin 1,000 mg oral tablet 03/29/2016 [...] a day (at bedtime) for 90 days ProAir HFA 90 mcg/actuation inhalation HFA aerosol inhaler 04/22/2016 inhale 1 puff (90 mcg) by inhalation route every 4 hours as needed Levaquin 500 mg oral tablet 04/22/2016 04/29/2016 take 1 tablet (500 mg) by oral route once daily for 7 days Lasix 40 mg oral tablet 04/26/2016 05/01/2016 take 1 tablet (40 mg) by oral route once daily for 5 days KCL 20 meq 04/26/2016 1 po daily x5 Discontinued Name Start Date Discontinued Date SIG Comments Lyrica 75 mg oral capsule 02/26/2016 take 1 capsule (75 mg) by oral route 2 times per day Problem List Not available. Vital Signs Date Time BP-Sys(mm[Hg] BP-Katie(mm[Hg]) HR(bpm) RR(rpm) Temp WT HT HC BMI BSA BMI Percentile O2 Sat(%) 04/26/2016 10:54:00 AM 132 mmHg 72 mmHg [...] 12:00 AM ASSAY OF NATRIURETIC PEPTIDE Returned Results Summary Data and Description Results [...] 10:57AM Atelectasis, bilateral Apr 26 2016 10:57AM Payers Insurance Name Company Name Plan Name Plan Number Policy Number Policy Group Number Start Date [employer] [facility] Claims Center [id number] N/A Medicare Part A Medicare - Lab/Xray [id number] N/A Medicare RHC Medicare RHC [id number] N/A History of Encounters Visit Date Visit Type Provider 04/26/2016 Office visit Yvette Hansen APRN 04/22/2016 Office visit Yvette Hansen APRN 03/29/2016 Office visit Kenzie Ayala MD 02/26/2016 Office visit Kenzie Ayala MD
--- OUTSIDE RECORDS SUMMARY | 2017-09-21 11:01 | XMS REPORT ---
Author Author Fabian Lehman [facility] Address [address] [facility] [address] [place], [place] [phone] Care Team Providers Care Muck Miner Name Role Phone Fabian Lehman PCP Kenzie [...] Number Start Date [employer] Hum[employer] Claims Center [id number] Wednesday, 2016 Medicare Part A Medicare - Lab/Xray [id number] N/A Medicare RHC Medicare RHC [id number] N/A History of Encounters Visit Date Visit Type Provider 08/23/2017 Office visit Fabian Lehman NP 06/22/2017 Office visit Fabian Lehman NP 06/17/2017 Office visit Fabian Lehman NP 05/24/2017 [facility] Julien Lay MD 05/22/2017 Office visit Fabian [...]
--- OUTSIDE RECORDS SUMMARY | 2017-09-21 11:02 | XMS REPORT ---
Author Author Fabian Lehman [facility] Address [address] [facility] [address] [place], [place] [phone] Care Team Providers Care Manganese Heater Name Role Phone Fabian Lehman PCP Kenzie [...] by oral route once daily at bedtime metformin 1,000 mg oral tablet 03/29/2016 09/20/2017 take 1.5 tabs in the morning and 1 tablet in the evening for 90 days tamsulosin 0.4 mg oral capsule,extended release 24hr 03/29/2016 09/20/2017 take 1 capsule (0.4 mg) by oral route once daily 1/2 hour following the same for 90 days KCL 20 meq 04/26/2016 [...] fentanyl 75 mcg/hr transdermal patch 72 hour 04/25/2017 05/25/2017 apply 1 patch (75 mcg/hour) by transdermal route every 36 hours for 30 days hydrocodone-acetaminophen 7.5-325 mg oral tablet 04/25/2017 05/25/2017 take 1 tablet by oral route every 6 hours as needed for pain for 30 days. Tamiflu 75 mg oral capsule 05/22/2017 take 1 capsule (75 mg) by oral route 2 times per day for 5 days Tessalon Perles 100 mg oral capsule 05/22/2017 take 1 capsule (100 mg) by oral route 3 times per day as needed for cough albuterol sulfate 2.5 mg /3 mL (0.083 %) inhalation solution for nebulization 05/22/2017 inhale 3 milliliters (2.5 mg) by nebulization route 4 times per day as needed ipratropium-albuterol 0.5 mg-3 mg(2.5 mg base)/3 mL inhalation solution for nebulization 05/22/2017 use in nebulizer as directed 2 times a day Name Start Date Expiration Date SIG Comments gabapentin 300 mg oral capsule 03/29/2016 03/24/2017 take 1 capsule (300 mg ) by oral route 3 for 90 days doxycycline hyclate 100 mg [...] ONCE DAILY AT BEDTIME FOR 90 DAYS Discontinued Name Start Date Discontinued Date SIG [...] HC BMI BSA BMI Percentile O2 Sat(%) 05/22/2017 1:45:00 PM 130 mmHg 70 mmHg 101.3 F 242.125 lbs 91 % 01/19/2017 4:24:00 PM 128 mmHg 62 mmHg 72 bpm 18 rpm 99.7 F 242 lbs 68 in 36.7956 kg/m 2.2949 m 93 % 08/17/2016 1:53:00 PM 172 mmHg [...] 01/19/2017 12:00 AM Depo Medrol 40mg Injection, [facility] Medicare Reviewed 01/19/2017 12:00 AM Decadron 4mg Injection, [facility] Medicare Reviewed 01/19/2017 12:00 AM Injection, dexamethasone [...] 2017 1:50PM Fever May 22 2017 1:50PM Payers Insurance Name Company Name Plan Name Plan Number Policy Number Policy Group Number Start Date [employer] Hum[employer] Claims Center [id number] Wednesday, 2016 Medicare Part A Medicare - Lab/Xray [id number] N/A Medicare RHC Medicare RHC [id number] N/A History of Encounters Visit Date Visit Type Provider 05/22/2017 Office visit Fabian Lehman NP 01/19/2017 Office visit Kenzie Ayala MD 08/17/2016 Office visit Kenzie Ayala MD 05/27/2016 Office visit Kenzie Ayala MD 04/28/2016 Office visit Kenzie Ayala MD 04/26/2016 Office visit Yvette Hansen APRN 04/22/2016 Office visit Yvette Hansen APRN 03/29/2016 Office visit Kenzie Ayala MD 02/26/2016 Office visit Kenzie Ayala MD
--- OUTSIDE RECORDS SUMMARY | 2017-09-21 11:02 | XMS REPORT ---
Author Author Kenzie Ayala Organization [facility] Address [address] [facility] [address] [place], [place] [phone] Care Team Providers Care Lead Handler Name Role Phone Kenzie Ayala PCP Kenzie [...] oral route once daily for 90 days pravastatin 40 mg oral tablet 02/26/2016 08/19/2017 take 1 tablet by oral route once a day (at bedtime) for 90 days enalapril maleate 20 mg [...] hour following the same for 90 days Discontinued Name Start Date Discontinued Date SIG Comments Lyrica 75 mg oral capsule 02/26/2016 take 1 capsule (75 mg) by oral route 2 times per day Problem List Not available. Vital Signs Date Time BP-Sys(mm[Hg] BP-Katie(mm[Hg]) HR(bpm) RR(rpm) Temp WT HT HC BMI BSA BMI Percentile O2 Sat(%) 03/29/2016 2:15:00 PM 140 mmHg 76 mmHg 74 bpm 16 rpm 99 F 237.125 lbs 68 in 36.05 kg/m2 2.27 m2 94 % 02/26/2016 3:37:00 PM 164 mmHg 80 mmHg 70 bpm 16 rpm 100.2 F 233.125 lbs 69 in 34.4262 kg/m 2.2689 m 94 % Social History Name Description Comments Tobacco Former smoker quit 2000 Caffeine Current every day History of Procedures Not available. Results Summary Not available. History Of Immunizations Not available. History of [...] Other chronic pain Mar 29 2016 2:19PM Payers Insurance Name Company Name Plan Name Plan Number Policy Number Policy Group Number Start Date Medicare Part A Medicare [facility] [id number] N/A [facility] Hum[employer] Claims Center [id number] N/A Medicare Part A Medicare - Lab/Xray [id number] N/A History of Encounters Visit Date Visit Type Provider 03/29/2016 Office visit Kenzie Ayala MD 02/26/2016 Office visit Kenzie Ayala MD
--- OUTSIDE RECORDS SUMMARY | 2017-09-21 11:02 | XMS REPORT ---
Author Author Yvette Hansen [facility] Address [address] [facility] [address] [place], [place] [phone] Care Team Providers Care Lay Up Operator Name Role Phone Yvette Hansen PCP Unavailable [...] 2016 1:17PM Cough Apr 22 2016 1:17PM Payers Insurance Name Company Name Plan Name Plan Number Policy Number Policy Group Number Start Date [facility] Hum[employer] Claims Center [id number] N/A Medicare Part A Medicare - Lab/Xray [id number] N/A Medicare RHC Medicare RHC [id number] N/A History of Encounters Visit Date Visit Type Provider 04/26/2016 Office visit Yvette Hansen APRN 04/22/2016 Office visit Yvette Hansen APRN 03/29/2016 Office visit Kenzie Ayala MD 02/26/2016 Office visit Kenzie Ayala MD
--- OUTSIDE RECORDS SUMMARY | 2017-09-21 11:03 | XMS REPORT ---
Author Author Kenzie Ayala [facility] Address [address] [facility] [address] [place], [place] [phone] Care Team Providers Care Shredded Filler Cigar Maker Machine Name Role Phone Kenzie Ayala PCP Kenzie [...] as needed for pain for 30 days Ventolin HFA 90 mcg/actuation inhalation HFA [...] Number Policy Group Number Start Date Medicare RHC Medicare RHC [id number] N/A [employer] Claims [facility] [id number] N/A Medicare Part A Medicare - Lab/Xray [id number] N/A History of Encounters Visit Date Visit Type Provider 05/27/2016 Office visit Kenzie Ayala MD 04/28/2016 Office visit Kenzie Ayala MD 04/26/2016 Office visit Yvette Hansen APRN 04/22/2016 Office visit Yvette Hansen APRN 03/29/2016 Office visit Kenzie Ayala MD 02/26/2016 Office visit Kenzie Ayala MD
--- OUTSIDE RECORDS SUMMARY | 2017-09-21 11:03 | XMS REPORT ---
Author Author Fabian Lehman [facility] Address [address] [facility] [address] [place], [place] [id number] Care Team Providers Care Steward Racetrack Name Role Phone Fabian Lehman PCP Kenzie [...] 08/17/2016 12:00 AM BNP 08/17/2016 12:00 AM Breathing Treatment 05/22/2017 12:00 AM Respiratory Therapy Treatment 05/22/2017 12:00 AM Administration of ipratropium bromide with albuterol sulfate by nebulizer 12:00 AM Medications Active Name Start Date [...] 01/19/2017 12:00 AM Depo Medrol 40mg Injection, [facility] Medicare Reviewed 01/19/2017 12:00 AM Decadron 4mg Injection, [facility] Medicare Reviewed 01/19/2017 12:00 AM Injection, dexamethasone [...] Number Start Date [employer] [facility] [id number] Wednesday, 2016 Medicare Part A Medicare - Lab/Xray [id number] N/A Medicare RHC Medicare RHC [id number] N/A History of Encounters Visit Date Visit [...]
--- OUTSIDE RECORDS SUMMARY | 2017-09-21 11:04 | XMS REPORT ---
Author Author Fabian Lehman Organization [facility] Address [address] [facility] [address] [place], [place] [id number] Care Team Providers Care Car Sealer Name Role Phone Fabian Lehman PCP Fabian Lehman PreferredProvider Allergies and Adverse Reactions Name Reaction [...] AM Computed tomography myelogram of lumbosacral region 2017 12:00 AM Medications Active Name Start Date [...] Number Start Date [employer] [facility] [id number] Wednesday, 2016 Medicare Part A Medicare - Lab/Xray [id number] N/A Medicare RHC Medicare RHC [id number] N/A History of Encounters Visit Date Visit Type Provider 08/23/2017 Office visit 08/23/2017 Office visit Fabian Lehman NP 06/22/2017 Office visit Fabian Lehman NP 06/17/2017 Office visit Fabian Lehman NP 05/24/2017 [facility] Julien Lay MD 05/22/2017 Office visit [...]
--- OUTSIDE RECORDS SUMMARY | 2017-09-21 11:05 | XMS REPORT ---
Author Author Kenzie Ayala Organization [facility] Address [address] [facility] [address] [place], [place] [id number] Care Team Providers Care Chief Resource Officer Name Role Phone Kenzie Ayala PCP Kenzie [...] PUFF BY MOUTH EVERY 4 HOURS NEEDED Lasix 20 mg oral tablet 08/17/2016 02/13/2017 take 1 tablet (20 mg) by oral route once daily for 30 days nitroglycerin 0.4 mg sublingual tablet, sublingual 09/21/2016 place 1 tablet (0.4 mg) by buccal route at the first sign of an attack; no more than 3 tabs are recommended within a 15 minute period. hydrocodone-acetaminophen 7.5-325 mg oral tablet 01/19/2017 02/18/2017 take 1 tablet by oral route every 6 hours as needed for pain for 30 days. fentanyl 75 mcg/hr transdermal patch 72 hour 01/19/2017 02/18/2017 Change every 36 hrs for 30 days. Pataday 0.2 % ophthalmic (eye) drops 01/19/2017 instill 1 drop into affected eye(s) by ophthalmic route once daily for 30 days Name Start Date Expiration [...] 12:00 AM THERAPEUTIC PROPHYLACTIC/DX INJECTION SUBQ/IM Reviewed Results Summary Date and Description Results [...] 2016 1:57PM Sinusitis Jan 19 2017 4:53PM Payers Insurance Name Company Name Plan Name Plan Number Policy Number Policy Group Number Start Date [facility] [id number] Wednesday, 2016 Medicare Part A Medicare - Lab/Xray [id number] N/A Medicare C Medicare [facility] [id number] N/A History of Encounters Visit Date Visit [...]
--- OUTSIDE RECORDS SUMMARY | 2017-09-21 11:05 | XMS REPORT ---
Author Author Fabian Lehman [facility] Address [address] [facility] [address] [place], [place] [id number] Care Team Providers Care Sales Manager [place] Name Role Phone Fabian Lehman PCP Kenzie [...] Number Start Date [employer] [facility] [id number] Wednesday, 2016 Medicare Part A Medicare - Lab/Xray [id number] N/A Medicare RHC Medicare RHC [id number] N/A History of Encounters Visit Date Visit Type Provider 08/23/2017 Office visit Fabian Lehman NP 06/22/2017 Office visit Fabian Lehman NP 06/17/2017 Office visit Fabian Lehman NP 05/24/2017 [facility] Julien Lay MD 05/22/2017 Office visit [...]
--- OUTSIDE RECORDS SUMMARY | 2017-09-21 11:06 | XMS REPORT | Continuity of Care Document ---
Author Author [facility] Organization [facility] Address Unknown Phone Unavailable Allergies Active Description Code Type Severity Reaction Onset Reported/Identified Relationship to Patient Clinical Status Yes No Known Allergies No Known Allergies Drug Allergy Unknown N/A 2016 Yes nalbuphine nalbuphine Drug Allergy Severe hallucinations 09/30/2016 Medications There is no data. Problems There is no data. Procedures There is no data. Results Test Result Range Legionella pneumophila Abs. - 04/28/16 14:40 Legionella pneumophila Abs. <0.91 OD ratio 0.00-0.90 Streptococcus pneumoniae Ag - 04/28/16 14:40 Streptococcus pneumoniae Ag Negative Negative CBC W/DIFF - 09/30/16 11:55 EOSINOPHIL # 0.6 k/cumm 0.1-0.5 EOSINOPHIL % 5 % 2-4 GRANULOCYTE # 7.2 k/cumm 2.0-9.0 GRANULOCYTE % 61 % 50-75 LYMPHOCYTE # 3.3 k/cumm 1.0-4.0 LYMPHOCYTE % 28 % 20-30 MEAN CELL HGB 26.5 pg 27.0-33.0 MEAN CELL HGB CONCENTRATION 32.7 g/dL 32.0-37.0 MEAN CELL VOLUME 80.8 fl 80.0-100.0 MONOCYTE # 0.8 k/cumm 0.1-1.0 MONOCYTE % 7 % 4-6 RED BLOOD CELL 4.80 m/cumm 4.00-6.00 RED CELL DISTRIBUTION WIDTH 15.3 % 11.0-15.6 WHITE BLOOD CELL 11.9 k/cumm 5.0-10.0 HEMOGLOBIN 12.7 gm/dL 14.0-18.0 HEMATOCRIT 38.8 % 40.0-54.0 PLATELET COUNT 218 k/cumm 150-450 PROTHROMBIN TIME WITH INR - 09/30/16 11:55 INTERNATIONAL NORMAL RATIO 1.1 0.9-1.1 PROTHROMBIN TIME 13.0 sec 10.0-12.8 METABOLIC PANEL, BASIC - 09/30/16 11:55 POTASSIUM 4.0 mmol/L 3.5-5.3 EST GFR (MDRD) > 60 mL/min > 59 ANION GAP 5 mmol/L 5-15 EST CrCl (CG) > 60 mL/min > 59 GLUCOSE 201 mg/dL 70-99 CALCIUM 9.3 mg/dL 8.5-10.1 BLOOD UREA NITROGEN 16 mg/dL 7-20 CREATININE 0.9 mg/dL 0.7-1.3 SODIUM 138 mmol/L 135-148 CHLORIDE 99 mmol/L 98-110 CARBON DIOXIDE 34 mmol/L 21-32 LIPID PANEL - 09/30/16 11:55 CHOLESTEROL/HDL RATIO 2.6 < 5.0 LDL CHOLESTEROL 65 mg/dL < 100 VLDL CHOLESTEROL 19 mg/dL < 30 TRIGLYCERIDES 93 mg/dL < 150 CHOLESTEROL 137 mg/dL < 200 HDL CHOLESTEROL 53 mg/dL > 39 GLUCOSE (POC) - 09/30/16 20:08 GLUCOSE (POC) 212 mg/dL 70-99 CBC W/DIFF - 05/18/17 10:56 BASOPHIL # 0.0 k/cumm 0.0-0.2 BASOPHIL % 0.3 % 0-1 EOSINOPHIL # 0.5 k/cumm 0.1-0.5 EOSINOPHIL % 3.8 % 2-4 GRANULOCYTE # 8.5 k/cumm 2.0-9.0 GRANULOCYTE % 64.9 % 50-75 LYMPHOCYTE # 3.3 k/cumm 1.0-4.0 LYMPHOCYTE % 24.8 % 20-30 MEAN CELL HGB 26.0 pg 27.0-33.0 MEAN CELL HGB CONCENTRATION 32.5 g/dL 32.0-37.0 MEAN CELL VOLUME 80.0 fl 80.0-100.0 MONOCYTE # 0.8 k/cumm 0.1-1.0 MONOCYTE % 6.2 % 4-6 RED BLOOD CELL 4.85 m/cumm 4.00-6.00 RED CELL DISTRIBUTION WIDTH 16.1 % 11.0-15.6 WHITE BLOOD CELL 13.1 k/cumm 5.0-10.0 HEMOGLOBIN 12.6 gm/dL 14.0-18.0 HEMATOCRIT 38.8 % 40.0-54.0 PLATELET COUNT 243 k/cumm 150-450 PROTHROMBIN TIME WITH INR - 02/07/18 10:56 INTERNATIONAL NORMAL RATIO 1.2 0.9-1.1 PROTHROMBIN TIME 13.7 sec 10.0-12.8 METABOLIC PANEL, BASIC - 05/18/17 10:56 POTASSIUM 4.0 mmol/L 3.5-5.3 EST GFR (MDRD) > 60 mL/min > 59 ANION GAP 5 mmol/L 5-15 EST CrCl (CG) > 60 mL/min > 59 GLUCOSE 171 mg/dL 70-99 CALCIUM 9.3 mg/dL 8.5-10.1 BLOOD UREA NITROGEN 12 mg/dL 7-20 CREATININE 0.6 mg/dL 0.7-1.3 SODIUM 138 mmol/L 135-148 CHLORIDE 102 mmol/L 98-110 CARBON DIOXIDE 31 mmol/L 21-32 MAGNESIUM - 05/18/17 10:56 MAGNESIUM 1.3 mg/dL 1.8-2.4 THYROID STIM HORMONE (TSH) - 05/18/17 10:56 THYROID STIM HORMONE (TSH) 1.21 uIU/mL 0.34-4.82 GLUCOSE (POC) - 05/18/17 14:39 GLUCOSE (POC) 122 mg/dL 70-99 Encounters ACCT No. Visit Date/Time Discharge Status Pt. Type Provider Facility Loc./Unit Complaint [id number] 05/18/2017 10:16:00 05/18/2017 16:55:00 DIS Outpatient Ana MORRELL, [facility] E.EPO [id number] 05/09/2017 11:56:00 05/09/2017 11:56:00 DIS Outpatient Ana MORRELL, [facility] E.ZORAIDA [id number] 09/30/2016 11:10:00 10/01/2016 10:46:00 DIS Outpatient Marcel MORRELL, [facility] E.CVLO [id number] 09/23/2016 13:33:00 09/23/2016 13:33:00 DIS Outpatient Guerrero MORRELL, [facility] E.ZORAIDA [id number] 08/23/2017 10:45:03 08/23/2017 23:59:59 CLS Outpatient Fabian Lehman [id number] 06/22/2017 16:41:34 06/22/2017 23:59:59 CLS Outpatient Fabian Lehman [id number] 06/17/2017 13:48:52 06/17/2017 23:59:59 CLS Outpatient Fabian Lehman [id number] 06/08/2017 17:10:22 06/08/2017 23:59:59 CLS Outpatient Alireza Julien Bean [id number] 05/22/2017 15:45:38 05/22/2017 23:59:59 CLS Outpatient Fabian Lehman [id number] 01/19/2017 17:18:38 01/19/2017 23:59:59 CLS Outpatient Ridnoelle Kenzie [id number] 08/17/2016 14:28:38 08/17/2016 23:59:59 CLS Outpatient Ridnoelle Kenzie [id number] 05/27/2016 14:16:53 05/27/2016 23:59:59 CLS Outpatient Riddel Kenzie [id number] 04/28/2016 14:04:44 04/28/2016 23:59:59 CLS Outpatient Ridnoelle Kenzie [id number] 04/26/2016 11:34:42 04/26/2016 23:59:59 CLS Outpatient Yvette Hansen [id number] 04/22/2016 13:52:43 04/22/2016 23:59:59 CLS Outpatient Yvette Hansen [id number] 03/29/2016 16:30:39 03/29/2016 23:59:59 CLS Outpatient RiddelRobinKenzie [id number] 02/26/2016 16:37:10 02/26/2016 23:59:59 CLS Outpatient Riddel Kenzie [id number] 04/29/2016 20:06:00 Document Registration [id number] 04/29/2016 13:06:00 Document Registration
--- OUTSIDE RECORDS SUMMARY | 2017-09-21 11:06 | XMS REPORT ---
Author Author Kenzie Ayala Organization [facility] Address [address] [facility] [address] [place], [place] [id number] Care Team Providers Care Pearl Glue Operator Name Role Phone Kenzie Ayala PCP Kenzie [...] Number Start Date [employer] Hum[employer] Claims Center [id number] N/A Medicare Part A Medicare - Lab/Xray [id number] N/A Medicare RHC Medicare RHC [id number] N/A History of Encounters Visit Date Visit Type Provider 04/28/2016 Office visit Kenzie Ayala MD 04/26/2016 Office visit Yvette Hansen APRN 04/22/2016 Office visit Yvette Hansen APRN 03/29/2016 Office visit Kenzie Ayala MD 02/26/2016 Office visit Kenzie Ayala MD
[2017-09-21 12:25] LABS: HEMOGLOBIN 13.8 G/DL (13.3-17.7); MEAN PLATELET VOLUME 11.3 FL (7.4-10.4); RED BLOOD COUNT 5.29 10^6/uL (4.35-5.85); RED CELL DISTRIBUTION WIDTH 16.1 % (10.0-14.5); WHITE BLOOD COUNT 12.6 10^3/uL (4.3-11.0)
[2017-09-21 12:34] LABS: INR 1.1 (0.8-1.4); PROTHROMBIN TIME PATIENT 13.8 SEC (12.2-14.7)
[2017-09-21] MEDS ORDERED: IOHEXOL 240 MGI/ML 20 ML (OMNIPAQUE) VIAL IV ONE (13:30)
[2017-09-21] MEDS ORDERED: HYDROcodone/APAP 5 MG/325 MG (LORTAB) TAB PO PRN (13:45)
--- NOTE | 2017-09-21 14:43 | Pre-Procedure Progress Note ---
Pre-Procedure Progress Note H&P Reviewed The H&P was reviewed, patient examined and no changes noted. Date H&P Reviewed: Sep 21, 2017 Time H&P Reviewed: 12:00 Pre-Procedure Diagnosis: Back pain YESSY MORENO MD Sep 21, 2017 14:43
--- NOTE | 2017-09-22 16:17 | RADIOLOGY REPORT ---
NAME: ELDA ALVAREZ [facility] REC#: [id number] PT STATUS: REG [facility] [place] : 1945 PHYSICIAN: ALEJANDRINA PEREZ ADMIT DATE: 09/21/17/RAD CORRECTED Signed Date of Exam:09/21/17 CT LUMBAR SPINE W PROCEDURE: CT lumbar spine with contrast. TECHNIQUE: Multiple contiguous axial images were obtained through the lumbar spine after the intrathecal administration of contrast. Sagittal and coronal reformations were then performed. INDICATION: Low back pain and bilateral leg pain. COMPARISON: No prior studies are available for comparison. FINDINGS: Curvature and alignment of the lumbar spine is normal. The vertebral body heights are maintained. No fracture is seen. There is severe multilevel degenerative disc disease. There is complete loss of the disc spaces at all levels. There are large marginal osteophytes present at all levels. T12-L1: Central canal is widely patent. Neural foramina appear patent. L1-2: Central canal appears patent. No significant neural foraminal stenosis is identified. L2-3: There is bulky hypertrophic facet changes and marginal osteophyte formation. There is severe bilateral lateral recess stenosis. There also appears to be significant bilateral neural foraminal stenosis. Severe central canal stenosis is present. L3-4: There is severe trefoil stenosis to the canal as well as severe bilateral lateral recess stenosis. Significant bilateral neural foraminal stenosis is present. L4-5: Bulky facet changes are present. There is significant central canal stenosis with severe bilateral lateral recess and bilateral neural foraminal stenosis. L5-S1: Central canal is only mildly narrowed. There is significant bilateral neural foraminal stenosis and significant bilateral lateral recess stenosis. The paraspinous tissues are unremarkable. IMPRESSION: Severe lumbar spondylosis and facet arthropathy with severe multilevel central canal, lateral recess, and neural foraminal stenosis, described level by level above. This appears to be most marked at the L2-3, L3-4, and L4-5 levels. Dictated by: Dictated on workstation # [id number] Dict: 09/21/17 1331 Trans: 09/21/17 1530 [id number] Interpreted by: YESSY MORENO MD Electronically signed by: YESSY MORENO MD 09/21/17 1530 [facility]
--- NOTE | 2017-09-22 16:19 | RADIOLOGY REPORT ---
NAME: ELDA ALVAREZ [facility] REC#: [id number] [place] [facility] [place] 1945 PHYSICIAN: ALEJANDRINA PEREZ ADMIT DATE: 09/21/17/RAD CORRECTED Signed Date of Exam:09/21/17 MYELOGRAM, LUMBOSACRAL INDICATION: Chronic back pain. The patient was brought to the procedure room and placed on the table in the prone position. The skin of the low back was prepped and draped in the usual sterile fashion. Small amount of 1% lidocaine was utilized for local anesthesia. 21-gauge spinal needle was advanced into the lumbar thecal sac at the L3 level. Approximately 12 mL of Omnipaque 240 was injected under fluoroscopic observation. Needle was withdrawn and hemostasis was obtained. Spot films of the lumbar spine were obtained in multiple obliquities. A total of one minute and 52 seconds of fluoroscopy was utilized. Patient tolerated the procedure well and was sent to CT for post myelography CT. Contrast is seen throughout the lumbar thecal sac. There is significant extradural defects noted upon the thecal sac at multiple levels, consistent with disc/osteophyte complex. This will be evaluated on post myelography CT. No complete obstruction to the contrast column is identified. There is significant multilevel degenerative disc disease with disc space narrowing and marginal osteophyte formation. IMPRESSION: Lumbar myelogram with multilevel degenerative disc disease. This will be further assessed on post-myelography CT. Dictated by: Dictated on workstation # [id number] Dict: 09/21/17 1337 Trans: 09/21/17 1530 [facility] [id number] Interpreted by: YESSY MORENO MD Electronically signed by: YESSY MORENO MD 09/21/17 1530 [facility]
== END 2017-09-21 16:30 | disposition home or self-care (01) ==
LOC: RAD 10:51
PROVIDERS: ATTEND Nurse Practitioner Family
DX: M48.07 Spinal stenosis, lumbosacral region (principal); M99.73 Connective tissue and disc stenosis of intervertebral foramina of lumbar region; M51.36 Other intervertebral disc degeneration, lumbar region; M47.816 Spondylosis without myelopathy or radiculopathy, lumbar region; M46.86 Other specified inflammatory spondylopathies, lumbar region
CPT/HCPCS: 36415; 62284; 72132; 72265; 77002; 85027; 85610; 85730